=== PATIENT | male | born 1965 | race Native Hawaiian/Other Pacific Islander ===

== ENCOUNTER 2019-07-03 01:22 | Emergency (ER) | payer OTHER ==
[~2019-07-03] VITALS: Ht 177.8 cm; Wt 113.4 kg
[2019-07-03 02:00] LABS: PLATELET COUNT 229 K/uL (142-355)
[2019-07-03 02:09] LABS: POTASSIUM 4.2 mmol/L (3.6-5.2)
[2019-07-03 03:22] VITALS: TEMP 99
[2019-07-03 04:40] VITALS: BP 157/96
== END 2019-07-03 04:40 | disposition short-term general hospital (02) ==
LOC: ED 01:22
PROVIDERS: Emergency Medicine
DX: I21.4 Non-ST elevation (NSTEMI) myocardial infarction (principal); I25.2 Old myocardial infarction
CPT/HCPCS: 36415; 80053; 82550; 82553; 84484; 85027; 93005; 96360; 96365; 96372; 96374; 96375; 99285; J1644; J1650; J2270

== ENCOUNTER 2020-04-10 23:20 | Emergency (ER) | payer OTHER ==
[~2020-04-10] VITALS: Ht 177.8 cm; Wt 112.0 kg
[2020-04-11 00:36] LABS: PLATELET COUNT 238 K/uL (142-355)
[2020-04-11 00:39] LABS: POTASSIUM 4.2 mmol/L (3.6-5.2)
[2020-04-11 02:00] VITALS: BP 159/81; TEMP 99.1
== END 2020-04-11 02:00 | disposition home or self-care (01) ==
LOC: ED 23:20
PROVIDERS: Emergency Medicine Emergency Medical Services
DX: J18.9 Pneumonia, unspecified organism (principal); Z20.828 Contact with and (suspected) exposure to other viral communicable diseases
CPT/HCPCS: 36415; 80053; 84484; 85027; 87635; 93005; 96374; 99284; J1100; U0003

== ENCOUNTER 2020-05-05 10:43 | Outpatient (CLI) | payer OTHER | END 2020-05-05 19:23 | disposition home or self-care (01) | LOC: RAD 10:43 | PROVIDERS: ATTEND Registered Nurse | DX: R06.02 Shortness of breath (principal) ==

== ENCOUNTER 2020-05-07 01:49 | Emergency (ER) | payer OTHER ==
[~2020-05-07] VITALS: Ht 177.8 cm; Wt 112.0 kg
[2020-05-07 03:11] LABS: POTASSIUM 4.4 mmol/L (3.6-5.2)
[2020-05-07 03:16] LABS: PLATELET COUNT 287 K/uL (142-355)
[2020-05-07 07:10] VITALS: BP 100/65; TEMP 98.8
== END 2020-05-07 07:10 | disposition short-term general hospital (02) ==
LOC: ED 01:49
PROVIDERS: Emergency Medicine Emergency Medical Services
DX: I21.4 Non-ST elevation (NSTEMI) myocardial infarction (principal); I50.9 Heart failure, unspecified; J18.9 Pneumonia, unspecified organism; U07.1 COVID-19
CPT/HCPCS: 36415; 36600; 80053; 81000; 82805; 83605; 83880; 84484; 85027; 85379; 85610; 87040; 87502; 87635; 93005; 96361; 96365; 96366; 96372; 96375; 99284; J1650; J1815; J1940; J1956; U0003

== ENCOUNTER 2021-02-28 16:38 | Emergency (ER) | payer OTHER ==
[~2021-02-28] VITALS: Ht 177.8 cm; Wt 112.0 kg
[2021-02-28 17:49] LABS: POTASSIUM 3.9 mmol/L (3.6-5.2)
[2021-02-28 17:51] LABS: PLATELET COUNT 480 K/uL (142-355)
[2021-02-28 18:00] LABS: PARTIAL THROMBOPLASTIN TIME 23.2 SECONDS (24.5-33.6)
[2021-02-28 18:34] VITALS: BP 129/65; TEMP 98.1
== END 2021-02-28 18:34 | disposition home or self-care (01) ==
LOC: ED 16:38
PROVIDERS: Emergency Medicine
DX: S70.12XA Contusion of left thigh, initial encounter (principal); Z95.1 Presence of aortocoronary bypass graft; D64.89 Other specified anemias; X58.XXXA Exposure to other specified factors, initial encounter; Y92.89 Other specified places as the place of occurrence of the external cause
CPT/HCPCS: 80053; 83880; 84484; 85027; 85379; 85610; 85730; 93005; 99283

== ENCOUNTER 2022-06-28 10:39 | Outpatient (CLI) | payer OTHER | END 2022-06-28 21:18 | disposition home or self-care (01) | LOC: US 10:39 | PROVIDERS: ATTEND Registered Nurse | DX: R60.0 Localized edema (principal) ==

== ENCOUNTER 2022-06-28 11:15 | Emergency (ER) | payer OTHER ==
[~2022-06-28] VITALS: Ht 177.8 cm; Wt 108.9 kg
[2022-06-28 11:25] VITALS: TEMP 98.5
[2022-06-28 12:00] VITALS: BP 154/84
[2022-06-28 12:16] LABS: PLATELET COUNT 190 K/uL (142-355)
== END 2022-06-28 13:05 | disposition home or self-care (01) ==
LOC: ED 11:15
PROVIDERS: Emergency Medicine Emergency Medical Services
DX: I82.4Z2 Acute embolism and thrombosis of unspecified deep veins of left distal lower extremity (principal); I82.412 Acute embolism and thrombosis of left femoral vein
CPT/HCPCS: 85027; 85610; 99283